=== PATIENT | female | born 2000 | race Caucasian/White ===

== ENCOUNTER 2021-08-16 03:53 | Observation (INO) | payer BC ==
[2021-08-16] VITALS (7 sets, daily range): BP systolic 110–131; BP diastolic 60–80; PULSE 86–94; TEMP 97.8–98.5
[~2021-08-16] VITALS: Ht 149.9 cm; Wt 72.7 kg
[2021-08-16 04:38] LABS: BASO % 0.2 % (0.0-2.0); EOS % 0.1 % (0-4.0); GRAN # 11.5 (1.4-6.5); GRAN % 85.9 % (42.2-75.2); HEMATOCRIT 39.4 % (35.0-45.0); HEMOGLOBIN 13.7 g/dl (12.0-15.0); LYMPH # 1.3 (1.2-3.4); LYMPH % 9.9 % (20.0-51.0); MEAN CELL VOLUME 82 fl (80.0-95.0); MEAN CORPUSCULAR HEMOGLOBIN 28 pg (26.0-32.0); MEAN CORPUSCULAR HGB CONC 35 g/dl (33.0-37.0); MEAN PLATELET VOLUME 9.8 fl (7.4-10.4); MONO # 0.5 (0.1-0.6); MONO % 3.6 % (1.7-9.3); PLATELET COUNT 349 K/mm3 (130-400); RED BLOOD COUNT 4.82 M/mm3 (4.10-5.30); REDCELL DISTRIBUTION WIDTH-CV 12.9 % (11.5-14.5)
[2021-08-16 05:09] LABS: ALBUMIN 4.3 gm/dL (3.5-5.0); BILIRUBIN,TOTAL 0.4 mg/dL (0.0-1.0); CREATININE, serum 0.92 (0.52-1.25); POTASSIUM 3.9 mmol/L (3.4-5.0)
[2021-08-16 06:06] LABS: COLLECTION METHOD CLEAN CATCH
[2021-08-16 06:13] LABS: PH 7 (5-8); SQUAMOUS EPITHELIAL 0-2 /hpf; URINE APPEARANCE Clear; URINE BACTERIA Rare /hpf; URINE BILIRUBIN Negative (NEGATIVE); URINE BLOOD 2+ (NEGATIVE); URINE COLOR Straw; URINE GLUCOSE Negative (NEGATIVE); URINE KETONE Negative (NEGATIVE); URINE LEUKOCYTE ESTERASE Trace (NEGATIVE); URINE NITRATE Negative (NEGATIVE); URINE PROTEIN(semi-quant) Negative (NEGATIVE); URINE RBC 0-2 /hpf; URINE UROBILINOGEN Negative (NEGATIVE)
[2021-08-16] MEDS ORDERED: ABILIFY2 MG PO (07:15)
[2021-08-16] MEDS ORDERED: ISIBLOOM 28 DA1 EACH PO (07:15)
[2021-08-16] MEDS ORDERED: LEXAPRO20 MG PO (07:15)
--- NOTE | 2021-08-16 11:30 | NUR ---
Patient will be going to surgery soon. She has been alert and oriented. Consent signed and on the chart. IVF's hanging as ordered. Her Mother is at bedside. No other changes at this time. Call light within reach.
[2021-08-16] MEDS ORDERED: PYRIDIUM 100MG100 MG PO (13:16)
[2021-08-16] MEDS ORDERED: NORCO 325 MG-51 TAB PO (13:16)
--- NOTE | 2021-08-16 14:10 | NUR ---
Patient is back from her procedure. Denies pain and nausea. She is voiding, her urine is red tinged. Explained that is normal and should get better. Her Mom is at bedside. No other changes at this time. Call light within reach.
--- NOTE | 2021-08-16 17:30 | NUR ---
Patient is discharging home. No complaints of pain or nausea. Explained she has prescriptions to cook pickled meat. Discharge instructions discussed with patient. No questions verbalized. INT discontinued. All belongings packed up and sent with patient. Explained office will call with follow up appointment. Copies of discharge instructions sent with patient. Patient walked out via wheel chair by Andrés FOX.
== END 2021-08-16 17:30 | disposition home or self-care (01) ==
LOC: COL.ER 03:53 → SURG 08:39
PROVIDERS: Student in an Organized Health Care Education/Training Program; ADMIT Urology
DX: N13.2 Hydronephrosis with renal and ureteral calculous obstruction (principal); F32.9 Major depressive disorder, single episode, unspecified; F41.9 Anxiety disorder, unspecified; Z79.899 Other long term (current) drug therapy
CPT/HCPCS: C1769; C2617; G0378; J0690; J0696; J1100; J1885; J1940; J2270; J2405; J2704; J3010; J7030; Q9967